=== PATIENT | male | born 1950 | race Caucasian/White ===

== ENCOUNTER → 2016-08-26 | Outpatient (CLI) | payer OTHER ==
--- NOTE | 2016-08-26 11:15 | RADRPT ---
PROCEDURE: Right knee radiographs. CLINICAL INDICATION: Right knee pain. TECHNIQUE: Four views. Weight bearing. Frontal, lateral, oblique, and patellar view. COMPARISON: No prior studies are available for comparison. FINDINGS: There is no fracture or dislocation. There is a bipartite patella, a normal variant. The soft tissues are normal. Articular surfaces are intact. There is no lytic or blastic lesion. There is no radiopaque foreign body. IMPRESSION: 1. Bipartite patella, a normal variant. 2. Otherwise unremarkable images of the right knee. RPTAT: QQ .Mickey Padilla MD, MD Date Time Electronically viewed and signed by .Mickey Padilla MD, on 08/26/2016 11:15 .R/
== END | disposition home or self-care (01) ==
LOC: HKI 08:09
PROVIDERS: ATTEND Orthopaedic Surgery
DX: Q74.1 Congenital malformation of knee (principal); M25.561 Pain in right knee

== ENCOUNTER 2017-09-27 19:57 | Emergency (ER) | END 2017-09-27 21:19 | disposition home or self-care (01) ==